=== PATIENT | female | born 1985 | race Caucasian/White ===

== ENCOUNTER 2016-11-30 19:28 | Emergency (ER) | payer OTHER ==
[~2016-11-30] VITALS: Ht 160 cm; Wt 108.8 kg
[~2016-11-30 19:28] MED LIST: BUSP5TAB2 PO; CLON1TAB PO; SERT25TA PO; ZOLP10TA PO
[2016-11-30] MEDS ORDERED: HYDROmorphone 1 MG/ML, 1ML IV ONE (20:00)
[2016-11-30] MEDS ORDERED: KETOROLAC 30 MG/1 ML IVPush ONE (20:00)
[2016-11-30] MEDS ORDERED: SODIUM CHLORIDE 0.9% 1,000ML IVBOLUS ONE (20:00)
[2016-11-30] MEDS ORDERED: SODIUM CHLORIDE FLUSH 10ML SYR IVF ONE (20:00)
[2016-11-30 20:40] LABS: HEMOGLOBIN 15.2 g/dL (11.7-16.4); WHITE BLOOD COUNT 11.9 x10^3/uL (3.4-10)
[2016-11-30] MEDS ORDERED: HYDROmorphone 1 MG/ML, 1ML ONE (20:41)
[2016-11-30] MEDS ORDERED: KETOROLAC 30 MG/1 ML ONE (20:41)
[2016-11-30 20:50] LABS: BLOOD UREA NITROGEN 14 mg/dL (7-18)
[2016-11-30 21:06] VITALS: BP 136/91
== END 2016-12-01 00:41 | disposition home or self-care (01) ==
LOC: ED 21:52
DX: M94.0 Chondrocostal junction syndrome [Tietze] (principal); G89.29 Other chronic pain; Z98.1 Arthrodesis status
CPT/HCPCS: 36415; 71020; 80048; 82040; 85025; 93005; 96361; 96374; 96375; 99285; J1170; J1885; J7030